=== PATIENT | female | born 1960 | race Caucasian/White ===

== ENCOUNTER → 2017-10-19 | Outpatient (CLI) | payer MEDICAID ==
[~2017-10-19] MED LIST: ASEN5TAB; ASP325 PO; CLOZ25TA PO; DEXL60CA6; FLUP5TAB PO; LEVO25TA56 PO; MIR; MULTIPLE VITAMIN; OMEP-153 PO; PAN20 PO; PAN40 PO; PENI-22 PO; SENN-233 PO; SIM10 PO; SIME180C40; THYROID MED; [UNRECOGNIZED DRUG - CODE]; [UNRECOGNIZED DRUG - CODE] PO; probiotics
[2017-10-19 13:25] LABS: LDL CHOLESTEROL 30 mg/dl
== END ==
LOC: LAB 12:49
PROVIDERS: ATTEND Nurse Practitioner Family
DX: E03.9 Hypothyroidism, unspecified (principal); E78.5 Hyperlipidemia, unspecified
CPT/HCPCS: 36415; 82040; 82247; 82310; 82374; 82435; 82465; 82565; 82947; 83718; 84075; 84132; 84155; 84295; 84443; 84450; 84460; 84478; 84520

== ENCOUNTER → 2018-06-02 | Outpatient (CLI) | payer MEDICAID ==
[2018-06-02 13:56] LABS: LDL CHOLESTEROL 48 mg/dl
== END ==
LOC: LAB 13:21
PROVIDERS: ATTEND Nurse Practitioner Family
DX: E78.5 Hyperlipidemia, unspecified (principal); E03.9 Hypothyroidism, unspecified
CPT/HCPCS: 36415; 82040; 82247; 82310; 82374; 82435; 82465; 82565; 82947; 83718; 84075; 84132; 84155; 84295; 84443; 84450; 84460; 84478; 84520

== ENCOUNTER → 2018-09-28 | Outpatient (CLI) | payer MEDICAID ==
[2018-09-28 09:44] LABS: LDL CHOLESTEROL 101 mg/dl
== END ==
LOC: LAB 09:07
PROVIDERS: ATTEND Nurse Practitioner Family
DX: E03.9 Hypothyroidism, unspecified (principal); E78.5 Hyperlipidemia, unspecified; K21.9 Gastro-esophageal reflux disease without esophagitis
CPT/HCPCS: 36415; 82040; 82247; 82310; 82374; 82435; 82465; 82565; 82947; 83718; 84075; 84132; 84155; 84295; 84443; 84450; 84460; 84478; 84520